=== PATIENT | female | born 1985 | race Caucasian/White ===

== ENCOUNTER 2016-12-14 14:50 | Observation (INO) | payer MEDICAID ==
[~2016-12-14] VITALS: Ht 165.1 cm; Wt 127.0 kg
== END 2016-12-14 16:55 | disposition home or self-care (01) ==
LOC: L&D 14:50
PROVIDERS: ADMIT Specialist; ATTEND Specialist
DX: O42.912 Preterm premature rupture of membranes, unspecified as to length of time between rupture and onset of labor, second trimester (principal); Z3A.25 25 weeks gestation of pregnancy
CPT/HCPCS: 76805; 76818; 99281; G0378